=== PATIENT | male | born 1955 | race African-American/Black ===

== ENCOUNTER 2021-12-12 15:23 | Emergency (ER) | payer MEDICAID ==
[~2021-12-12] VITALS: Ht 180.3 cm; Wt 72.0 kg
[2021-12-12 15:37] VITALS: BP 103/74
[2021-12-12] MEDS ORDERED: NAPR-681 PO (16:35)
[2021-12-12] MEDS ORDERED: LIDO30CR46 TP (16:35)
[2021-12-12] MEDS ORDERED: VALA10002 MT (16:35)
== END 2021-12-12 16:52 | disposition home or self-care (01) ==
LOC: ER 15:23
DX: B02.9 Zoster without complications (principal)
CPT/HCPCS: 99283

== ENCOUNTER 2023-06-23 14:00 | Emergency (ER) | payer MEDICAID ==
[~2023-06-23] VITALS: Ht 172.7 cm; Wt 68.0 kg
[~2023-06-23 14:00] MED LIST: LIDO30CR46 TP; NAPR-681 PO; VALA10002 MT
[2023-06-23 14:05] VITALS: BP 145/100; PULSE 101; RESP 16; TEMP 98.2; O2SAT 97
[2023-06-23] MEDS ORDERED: ACETAMINOPHEN 325MG TABLET PO ONE (17:45)
== END 2023-06-23 20:38 | disposition home or self-care (01) ==
LOC: ER 14:47
DX: S00.93XA Contusion of unspecified part of head, initial encounter (principal); I10 Essential (primary) hypertension; X58.XXXA Exposure to other specified factors, initial encounter; Y93.89 Activity, other specified; Y92.89 Other specified places as the place of occurrence of the external cause; Y99.8 Other external cause status
CPT/HCPCS: 70450; 99284; Z7610

== ENCOUNTER 2023-08-22 23:51 | Emergency (ER) | payer MEDICARE, MEDICAID ==
[~2023-08-22] VITALS: Ht 180.3 cm; Wt 68.0 kg
[2023-08-22 23:56] VITALS: BP 138/103; TEMP 98; O2SAT 97
[2023-08-22 23:59] VITALS: PULSE 84; RESP 19
[2023-08-23] MEDS ORDERED: IPRATROPIUM BROMIDE (0.02%) 0.5MG/2.5ML NEB HHN STA (01:54)
[2023-08-23] MEDS ORDERED: METHYLPREDNISOLONE SOD SUCC 125MG/2ML (ACT-O-VIAL) IV STA (01:54)
[2023-08-23] MEDS ORDERED: ALBUTEROL (0.083%) 2.5MG/3ML NEB HHN SCH (02:00)
[2023-08-23 02:24] LABS: BASOPHILS % 0.9 % (0.0-2.0); EOSINOPHILS % 4.4 % (0.0-5.0); HEMATOCRIT. 41.2 % (42.0-52.0); HEMOGLOBIN. 13.8 g/dL (14.0-18.0); LYMPHOCYTES % 16.3 % (20.0-50.0); MEAN CORPUSCULAR HEMOGLOBIN 31.8 pg (28.0-32.0); MEAN CORPUSCULAR HGB CONC 33.6 g/dL (31.0-37.0); MEAN CORPUSCULAR VOLUME 94.6 fL (80.0-94.0); MEAN PLATELET VOLUME 7.5 fl (7.4-10.4); MONOCYTES % 6.1 % (2.0-8.0); NEUTROPHILS % 72.3 % (40.0-76.0); PLATELET 240 x1000/uL (130-400); RED BLOOD CELL COUNT 4.36 mill/uL (4.7-6.1); RED CELL DISTRIBUTION WIDTH 13.5 % (11.6-14.6); WHITE BLOOD COUNT 8.8 x1000/uL (4.5-11.0)
[2023-08-23 02:39] LABS: ALANINE AMINOTRANSFERASE 17 IU/L (10-49); ALBUMIN 4.9 g/dL (3.2-4.8); ASPARTATE AMINOTRANSFERASE 20 IU/L (<34); CALCIUM 9.4 mg/dL (8.7-10.4); CARBON DIOXIDE 28 mEq/L (21-32); CHLORIDE 109 mEq/L (98-107); CREATININE 1.4 mg/dL (0.6-1.3); GLUCOSE 89 mg/dL (70-105); POTASSIUM 4.2 mEq/L (3.5-5.1); PROTEIN TOTAL 7.9 g/dL (6.0-8.3); SODIUM 142 mEq/L (136-145); TROPONIN I HIGH SENSITIVITY 8 ng/L (3.0-53); UREA NITROGEN BLOOD 20 mg/dL (9-23)
== END 2023-08-23 02:58 | disposition left against medical advice (07) ==
LOC: ER 23:51
DX: J45.901 Unspecified asthma with (acute) exacerbation (principal); I10 Essential (primary) hypertension; I25.2 Old myocardial infarction
CPT/HCPCS: 36415; 71045; 80053; 83880; 84484; 85025; 93005; 99285

== ENCOUNTER 2023-09-06 15:27 | Emergency (ER) | payer MEDICARE, MEDICAID ==
[~2023-09-06] VITALS: Ht 180.3 cm; Wt 65.0 kg
[2023-09-06 15:34] VITALS: BP 122/78; PULSE 71; RESP 18; TEMP 98.6; O2SAT 100
[2023-09-06 16:21] LABS: BASOPHILS % 1.4 % (0.0-2.0); EOSINOPHILS % 4.8 % (0.0-5.0); HEMATOCRIT. 44.5 % (42.0-52.0); HEMOGLOBIN. 14.5 g/dL (14.0-18.0); LYMPHOCYTES % 22.5 % (20.0-50.0); MEAN CORPUSCULAR HEMOGLOBIN 32.5 pg (28.0-32.0); MEAN CORPUSCULAR HGB CONC 32.6 g/dL (31.0-37.0); MEAN CORPUSCULAR VOLUME 99.7 fL (80.0-94.0); MEAN PLATELET VOLUME 7.9 fl (7.4-10.4); MONOCYTES % 10.8 % (2.0-8.0); NEUTROPHILS % 60.5 % (40.0-76.0); PLATELET 207 x1000/uL (130-400); RED BLOOD CELL COUNT 4.47 mill/uL (4.7-6.1); RED CELL DISTRIBUTION WIDTH 13.7 % (11.6-14.6); WHITE BLOOD COUNT 5.9 x1000/uL (4.5-11.0)
[2023-09-06 16:37] LABS: ALANINE AMINOTRANSFERASE 15 IU/L (10-49); ALBUMIN 4.4 g/dL (3.2-4.8); ASPARTATE AMINOTRANSFERASE 32 IU/L (<34); CARBON DIOXIDE 23 mEq/L (21-32); CHLORIDE 109 mEq/L (98-107); CREATININE 1.3 mg/dL (0.6-1.3); GLUCOSE 90 mg/dL (70-105); POTASSIUM 4.1 mEq/L (3.5-5.1); PROTEIN TOTAL 7.2 g/dL (6.0-8.3); SODIUM 137 mEq/L (136-145); TROPONIN I HIGH SENSITIVITY 5 ng/L (3.0-53); UREA NITROGEN BLOOD 6 mg/dL (9-23)
[2023-09-06] MEDS ORDERED: P50 MT (18:45)
[2023-09-06] MEDS ORDERED: AZIT250T12 MT (18:45)
[2023-09-06] MEDS ORDERED: ALBU90AE INH (18:45)
== END 2023-09-06 19:00 | disposition home or self-care (01) ==
LOC: ER 15:27
DX: J45.901 Unspecified asthma with (acute) exacerbation (principal); F12.10 Cannabis abuse, uncomplicated; I25.2 Old myocardial infarction; I10 Essential (primary) hypertension
CPT/HCPCS: 36415; 71045; 80053; 84484; 85025; 93005; 99285

== ENCOUNTER 2025-03-13 20:11 | Emergency (ER) | payer OTHER, MEDICARE, MEDICAID ==
[~2025-03-13] VITALS: Ht 180.3 cm; Wt 68.0 kg
[~2025-03-13 20:11] MED LIST changes: +ALBU90AE INH; +AZIT250T12 MT; +P50 MT
[2025-03-13 20:18] VITALS: O2SAT 100
[2025-03-13] MEDS ORDERED: CYCL10TA21 MT (20:39)
[2025-03-13] MEDS ORDERED: ACET-2708 MT (20:39)
[2025-03-13 21:05] VITALS: BP 166/96; PULSE 69; RESP 13; TEMP 36.6; O2SAT 100
== END 2025-03-13 21:10 | disposition home or self-care (01) ==
LOC: ER 20:11
DX: M54.50 Low back pain, unspecified (principal); M54.2 Cervicalgia; M25.512 Pain in left shoulder; I10 Essential (primary) hypertension; F12.90 Cannabis use, unspecified, uncomplicated; I25.2 Old myocardial infarction; Z79.624 Long term (current) use of inhibitors of nucleotide synthesis; Z79.899 Other long term (current) drug therapy; V43.52XA Car driver injured in collision with other type car in traffic accident, initial encounter; Y93.89 Activity, other specified; Y92.89 Other specified places as the place of occurrence of the external cause; Y99.8 Other external cause status
CPT/HCPCS: 99283